=== PATIENT | female | born 1985 | race Caucasian/White ===

== ENCOUNTER 2019-07-10 15:07 | Emergency (ER) | payer OTHER, SELFPAY ==
[2019-07-10 15:09] VITALS: BP 133/91; PULSE 103; RESP 18; TEMP 36.9; O2SAT 99; BMI 29.6
--- NOTE | 2019-07-10 16:09 | CT_ITS ---
STUDY: CT ABDOMEN AND PELVIS WITH CONTRAST REASON FOR EXAM: Female, 33 years old. NAUSEA, YELLOWING OF EYES WORSENING. TESTED FOR HEPATITIS, FAR SHE KNOWS IT CAME BACK NEGATIVE RADIATION DOSAGE (If Supplied By Facility): CTDIvol = ( 15.08 ) mGy, DLP = ( 1045.91 ) mGycm TECHNIQUE: Transaxial images were obtained from the dome of the diaphragm to the symphysis pubis without oral contrast. Oral and amp; IV Gastrografin and amp; 100mL Isovue-300 was administered. Sagittal and coronal images were reconstructed. Individualized dose optimization techniques were used for this CT. COMPARISON: None. FINDINGS: The visualized lung bases are unremarkable. The visualized portions of the heart are within normal limits. The liver is upper normal in size and homogeneous attenuation without mass or bile duct dilatation. There does appear to be very subtle periportal fluid possibly due to nonspecific hepatocellular disease. Contracted thick-walled gallbladder without calcified stones possibly physiologic however ultrasound is recommended for further evaluation.. Normal spleen. Normal pancreas. Normal bilateral adrenal glands. Normal right kidney. Normal left kidney. Normal visualized stomach. Normal small intestine. Normal colon. The appendix is visualized and appears normal. Normal abdominal aorta. Normal inferior vena cava. Normal retroperitoneum. Normal urinary bladder. Mild cystic changes in the ovaries bilaterally with small amount of free fluid in the cul-de-sac likely due to recent ovulation. Normal abdominal wall. Normal osseous structures. CT/Abdomen/Pelvis WITH Contrast IMPRESSION: Contracted thick-walled gallbladder without calcified stones Ultrasound recommended for further assessment. Mild periportal fluid within the liver suggesting nonspecific hepatocellular disease. Electronically Signed: John Gayle MD at 18:26 EDT , Service support ,
--- NOTE | 2019-07-10 16:17 | ED.VISSUMM ---
- ER Visit Summary Date of Service: 07/10/19 Chief Complaint: Jaundice History of Present Illness: The patient is a 33 F who presents with jaundice that is been getting worse over the past several days. Patient states she saw her primary care physician 2 days ago and he did some blood work looking for hepatitis. Patient states her hepatitis panels all came back negative. Patient denies any pain. Patient admits to some nausea. Patient states the yellowness in her eyes and skin is getting worse. Patient denies any fevers or chills. Patient denies any visual changes. Patient denies any chest pain or shortness of breath. Physical Examination: Vital signs are stable. Patient is afebrile. Patient is in no acute distress. Pupils are equal, round, and reactive to light bilaterally. Extraocular muscles are intact. There is scleral icterus noted. Oral mucosa is pink and moist. Neck is supple. Trachea is midline. There is no JVD noted. Heart was regular rate and rhythm. Lungs are clear and equal bilaterally. Abdomen is soft. Bowel sounds are normal. There is no tenderness. There is no rebound or guarding noted. Skin is warm dry. Cranial nerves II through XII are intact. There are no focal motor or sensory deficits noted. Extremities are intact. There is no calf tenderness or edema. Test Results: CBC was normal. Comprehensive metabolic profile showed a total bilirubin of 10.8 and a direct bilirubin of 8.19. Alk phos was slightly elevated at 162. ALT is 2022 and AST is 1626. INR was normal at 1.3. PTT was normal at 32.1. Lipase was normal. CT scan of the abdomen and pelvis was obtained. There is a contracted thick-walled gallbladder without stones. There is mild periportal fluid suggesting nonspecific hepatocellular disease. On reevaluation of the CT scan, the radiologist noted some mild inflammation in the pancreatic head with stranding suggesting focal pancreatitis. Ultrasound of the gallbladder was obtained. There is a mildly thick-walled gallbladder without evidence for stones or acute inflammation. These were interpreted by the radiologist and reviewed by myself. Emergency Department Course and Treatment: Patient was given IV fluids and Zofran here. Patient was feeling better on reevaluation. Patient was instructed to follow-up with her primary care physician in 5 to 7 days. Patient also states that she was initially scheduled for an appoint with Dr. Delvalle. She is going to try and follow-up with him this week. Patient was instructed to drink plenty of fluids. Patient was instructed to return if worse in any way. Patient understood and was agreeable with the plan. All questions were answered. Disposition: Discharge home Impression: 1. Jaundice This note was generated with [employer] dictation software. It may contain incorrect words, spelling, and punctuation that were not noted in review of the chart prior to signing ED Disposition - Plan for ED Patient: Disposition: Home or Assisted Living Diagnosis: Jaundice Instructions: Common Tests for Liver Disease Referrals: Marty Azevedo DO [Primary Care Provider] - 5-7 Days Marcelino Delvalle MD [NON-STAFF] - Keep [facility] appointment
[2019-07-10 16:33] LABS: Absolute Lymphocyte Count 1.15 X10^3/uL (0.83-4.51); Absolute Neutrophil Count 3.2 X10^3/uL (2.0-7.7); Basophil# 0.02 X10^3/uL; Basophil% 0.4 % (0-1); Eosinophil# 0.12 X10^3/uL; Eosinophils% 2.4 % (0-5); Lymphocyte # 1.15 X10^3/ul (4.0); Lymphocyte % 23.1 % (19-41); Mean Corp Hgb Conc 33.3 g/dL (32-36); Mean Corpuscular Hgb 30.4 pg (27.0-32.0); Mean Corpuscular Volume 91.3 fL (81-99); Mean Platelet Vol. 9.6 fl (6.2-12.0); Monocyte# 0.52 X10^3/uL; Monocyte% 10.4 % (0-10); NRBC Flagged by Analyzer 0 % (0-5); Neutrophil # 3.16 X10^3/uL (2.7-7.7); Neutrophil % 63.5 % (47-70); Platelet Count 241 K/mm3 (150-450); RBC Distribution Width CV 15.1 % (11.6-14.6); RBC Distribution Width SD 50.5 fl (35.1-43.9); Red Blood Count 4.27 M/mm3 (4.2-5.4)
[2019-07-10] MEDS: Ondansetron 4 MG/2 ML Vial IV (16:39)
[2019-07-10] MEDS: 0.9% Normal Saline 1,000 ML 1000 ML IV (16:39)
[2019-07-10 16:50] LABS: International Normalized Ratio 1.3; Prothrombin Time (Protime)PT. 15.6 SECONDS (11.7-14.9)
[2019-07-10 16:51] LABS: Partial Thromboplast Time 32.1 Seconds (24.1-36.2)
[2019-07-10 16:53] LABS: AST(SGOT) 1626 U/L (15-37); Alanine Aminotransfer ALT/SGPT 2022 U/L (13-56); Albumin, Serum 3.6 g/dL (3.2-5.0); Alkaline Phosphatase 162 U/L (45-117); Anion Gap 7 (5-15); BUN 6 mg/dL (7-18); BUN/Creat Ratio 7.8 RATIO (10-20); Bilirubin, Direct 8.19 mg/dL (0.00-0.30); Calcium,Total 9.2 mg/dL (8.5-10.1); Chloride 106 mmol/L (98-107); Creatinine, Serum 0.77 mg/dL (0.55-1.02); EST Glomerular Filtration Rate 91 mL/min (>60); Est Glom Filt Rate - Afr Amer 110 mL/min (>60); Estimated Creatinine Clearance 102.87 ml/min; Globulin 3.3 g/dL (2.2-4.2); Glucose 105 mg/dL (74-106); Lipase 35 U/L (73-393); Protein, Total 6.9 g/dL (6.4-8.2); Sodium Level 141 mmol/L (136-145)
[2019-07-10 18:08] VITALS: BP 112/80; PULSE 74; RESP 16; O2SAT 100
--- NOTE | 2019-07-10 19:06 | US_ITS ---
STUDY: ABDOMINAL ULTRASOUND - RIGHT UPPER QUADRANT REASON FOR VISIT: Female, 33 years old ABD PAIN-YELLOWING OF THE SKIN TECHNIQUE: Ultrasound evaluation of the right upper quadrant was performed with real-time and static carl-scale imaging. TECHNICAL QUALITY: Adequate. COMPARISON: None. FINDINGS: Liver: The liver measures 15.1 cm. There is normal echogenicity of the liver. The bile ducts are within normal limits. There is hepatic color flow. The direction of portal flow is hepatopetal. There is no demonstrated mass lesion. Gallbladder: Normal distended gallbladder. The gallbladder wall measures 3 mm. There is a negative sonographic Jacques''s sign. There is no pericholecystic fluid. There are no gallstones. Common Bile Duct (C.B.D.): The common bile duct measures 4 mm. Pancreas: Less than optimal visualization due to bowel gas producing artifact Right Kidney: Normal size of the right kidney. The right kidney measures 10.9 x 4.6 x 4.4 cm. Normal renal cortex. The right cortex measures 1.5 cm. There is no demonstrated renal mass or cyst. There is no right hydronephrosis. US/Gallbladder IMPRESSION: Mildly thick-walled gallbladder without evidence for stones or acute inflammation. Electronically Signed: John Gayle MD at 19:41 EDT , Service support ,
[2019-07-10 20:53] LABS: Internal QC Validated? YES +Cl - CLEAR BKGD; Monotest Negative (Negative)
== END 2019-07-10 20:51 | disposition home or self-care (01) ==
PROVIDERS: Emergency Provider Emergency Medicine; PCP Family Medicine
DX: R17 Unspecified jaundice (principal); R11.0 Nausea
CPT/HCPCS: 74177; 76705; 80048; 80076; 83690; 85025; 85610; 85730; 86308; 96361; 96374; 99283; J7030; Q9967; A4216; J2405

== ENCOUNTER → 2019-07-12 15:54 | Outpatient (CLI) | payer OTHER, SELFPAY ==
[2019-07-10 15:09] VITALS: BMI 29.6
[2019-07-15 16:59] LABS: ANTINUCLEAR ANTIBODIES DIRECT Negative (Negative); Anti-Mitochondrial AB <20.0 Units (0.0-20.0); Anti-Smooth Muscle ABS 17 Units (0-19)
[2019-07-16 17:41] LABS: EBV Acute VCA IgM < 36.0
== END ==
PROVIDERS: PCP Family Medicine; Referring Provider Family Medicine; Visit Provider Family Medicine
DX: K75.9 Inflammatory liver disease, unspecified (principal)
CPT/HCPCS: 36415; 83516; 86038; 86665

== ENCOUNTER → 2019-07-18 15:50 | Outpatient (CLI) | payer OTHER, SELFPAY ==
[2019-07-10 15:09] VITALS: BMI 29.6
[2019-07-18 18:24] LABS: AST(SGOT) 2439 U/L (15-37); Alanine Aminotransfer ALT/SGPT 2867 U/L (13-56); Albumin, Serum 3.5 g/dL (3.2-5.0); Alkaline Phosphatase 170 U/L (45-117); Bilirubin, Direct 12.26 mg/dL (0.00-0.30); GGTP 111 U/L (5-55); Globulin 3.7 g/dL (2.2-4.2); LDH 342 U/L (84-246); Protein, Total 7.2 g/dL (6.4-8.2)
== END ==
PROVIDERS: PCP Family Medicine; Referring Provider Internal Medicine Gastroenterology; Visit Provider Internal Medicine Gastroenterology
DX: R17 Unspecified jaundice (principal)
CPT/HCPCS: 36415; 80076; 82977; 83615

== ENCOUNTER 2019-07-25 16:10 | Outpatient (RCR) | payer OTHER, SELFPAY ==
[2019-07-25 17:55] LABS: International Normalized Ratio 1.2; Prothrombin Time (Protime)PT. 14.9 SECONDS (11.7-14.9)
[2019-07-25 17:56] LABS: Partial Thromboplast Time 33.5 Seconds (24.1-36.2)
[2019-07-25 19:20] LABS: ALB/GLOB Ratio 0.9 RATIO (0.9-2.4); AST(SGOT) 1507 U/L (15-37); Alanine Aminotransfer ALT/SGPT 1561 U/L (13-56); Albumin, Serum 3.2 g/dL (3.2-5.0); Alkaline Phosphatase 138 U/L (45-117); Anion Gap 8 (5-15); BUN 9 mg/dL (7-18); BUN/Creat Ratio 9.7 RATIO (10-20); Calcium,Total 9.1 mg/dL (8.5-10.1); Chloride 103 mmol/L (98-107); Creatinine, Serum 0.93 mg/dL (0.55-1.02); EST Glomerular Filtration Rate 73 mL/min (>60); Est Glom Filt Rate - Afr Amer 88 mL/min (>60); Globulin 3.5 g/dL (2.2-4.2); Glucose 79 mg/dL (74-106); Potassium 3.5 mmol/L (3.5-5.1); Protein, Total 6.7 g/dL (6.4-8.2); Sodium Level 138 mmol/L (136-145)
== END 2019-08-08 18:00 | disposition home or self-care (01) ==
LOC: MTLAB 16:10
PROVIDERS: PCP Family Medicine; Referring Provider Internal Medicine Gastroenterology; Visit Provider Internal Medicine Gastroenterology
DX: R17 Unspecified jaundice (principal)
CPT/HCPCS: 36415; 80053; 85610; 85730

== ENCOUNTER 2019-08-06 16:32 | Outpatient (RCR) | payer OTHER, SELFPAY ==
[2019-07-30 14:46] LABS: Ammonia < 10.0 umol/L (11-32)
[2019-07-30 14:49] LABS: International Normalized Ratio 1.3; Prothrombin Time (Protime)PT. 15.4 SECONDS (11.7-14.9)
[2019-07-30 15:19] LABS: AST(SGOT) 1804 U/L (15-37); Alanine Aminotransfer ALT/SGPT 1503 U/L (13-56); Albumin, Serum 3.1 g/dL (3.2-5.0); Alkaline Phosphatase 134 U/L (45-117); Bilirubin, Direct 13.72 mg/dL (0.00-0.30); Globulin 3.6 g/dL (2.2-4.2); Iron 166 ug/dL (50-170); Protein, Total 6.7 g/dL (6.4-8.2)
[2019-08-06 17:41] LABS: International Normalized Ratio 1.2; Prothrombin Time (Protime)PT. 14.7 SECONDS (11.7-14.9)
[2019-08-06 18:15] LABS: AST(SGOT) 1106 U/L (15-37); Alanine Aminotransfer ALT/SGPT 1107 U/L (13-56); Albumin, Serum 3.3 g/dL (3.2-5.0); Alkaline Phosphatase 141 U/L (45-117); Bilirubin, Direct 8.19 mg/dL (0.00-0.30); Globulin 3.7 g/dL (2.2-4.2); Iron 218 ug/dL (50-170)
[2019-08-08 05:57] LABS: Ceruloplasmin 24.8 mg/dL (19.0-39.0)
== END 2019-08-08 18:00 | disposition home or self-care (01) ==
LOC: MTLAB 16:32
PROVIDERS: PCP Family Medicine; Referring Provider Internal Medicine Gastroenterology; Visit Provider Internal Medicine Gastroenterology
DX: R17 Unspecified jaundice (principal)
CPT/HCPCS: 36415; 80076; 82140; 82390; 83540; 85610

== ENCOUNTER → 2019-08-16 08:15 | Outpatient (CLI) | payer OTHER, SELFPAY ==
[2019-08-16 10:06] LABS: International Normalized Ratio 1.1; Prothrombin Time (Protime)PT. 13.7 SECONDS (11.7-14.9)
[2019-08-16 10:14] LABS: ALB/GLOB Ratio 0.9 RATIO (0.9-2.4); AST(SGOT) 606 U/L (15-37); Alanine Aminotransfer ALT/SGPT 898 U/L (13-56); Albumin, Serum 3.4 g/dL (3.2-5.0); Alkaline Phosphatase 124 U/L (45-117); Anion Gap 7 (5-15); BUN 8 mg/dL (7-18); BUN/Creat Ratio 13.9 RATIO (10-20); Calcium,Total 9.2 mg/dL (8.5-10.1); Chloride 108 mmol/L (98-107); Creatinine, Serum 0.58 mg/dL (0.55-1.02); EST Glomerular Filtration Rate 126 mL/min (>60); Est Glom Filt Rate - Afr Amer 153 mL/min (>60); Globulin 3.8 g/dL (2.2-4.2); Glucose 90 mg/dL (74-106); Potassium 3.9 mmol/L (3.5-5.1); Protein, Total 7.2 g/dL (6.4-8.2); Sodium Level 140 mmol/L (136-145)
[2019-08-20 03:06] LABS: HSV 1 By PCR Negative (Negative)
[2019-08-20 05:54] LABS: CMV Acute Antibody IgM < 30.0 AU/mL (0.0-29.9); CMV Antibody IgG > 10.00 U/mL (0.00-0.59); HSV 2 By PCR Negative (Negative); V-Zoster IgG (Immunity) < 135 index (Immune >165); V-Zoster Virus Acute IgM < 0.91 index (0.00-0.90)
== END ==
PROVIDERS: PCP Family Medicine; Referring Provider Internal Medicine Gastroenterology; Visit Provider Internal Medicine Gastroenterology
DX: Z00.00 Encounter for general adult medical examination without abnormal findings (principal)
CPT/HCPCS: 36415; 80053; 82140; 85610; 86644; 86645; 86787; 87529

== ENCOUNTER 2019-08-20 07:56 | Outpatient (RCR) | payer OTHER, SELFPAY ==
[2019-08-20 10:10] LABS: Prothrombin Time (Protime)PT. 12.8 SECONDS (11.7-14.9)
[2019-08-20 10:37] LABS: AST(SGOT) 395 U/L (15-37); Alanine Aminotransfer ALT/SGPT 709 U/L (13-56); Albumin, Serum 3.4 g/dL (3.2-5.0); Alkaline Phosphatase 141 U/L (45-117); Bilirubin, Direct 2.44 mg/dL (0.00-0.30); Globulin 3.8 g/dL (2.2-4.2); Iron 97 ug/dL (50-170); Protein, Total 7.2 g/dL (6.4-8.2)
== END 2019-08-20 18:00 | disposition home or self-care (01) ==
LOC: MTLAB 07:56
PROVIDERS: PCP Family Medicine; Referring Provider Internal Medicine Gastroenterology; Visit Provider Internal Medicine Gastroenterology
DX: R17 Unspecified jaundice (principal)
CPT/HCPCS: 36415; 80076; 82140; 83540; 85610

== ENCOUNTER 2019-09-17 08:37 | Outpatient (RCR) | payer OTHER, SELFPAY ==
[2019-09-17 10:07] LABS: Prothrombin Time (Protime)PT. 12.9 SECONDS (11.7-14.9)
[2019-09-17 10:31] LABS: AST(SGOT) 70 U/L (15-37); Alanine Aminotransfer ALT/SGPT 99 U/L (13-56); Albumin, Serum 3.7 g/dL (3.2-5.0); Alkaline Phosphatase 76 U/L (45-117); Bilirubin, Direct 0.69 mg/dL (0.00-0.30); Iron 101 ug/dL (50-170); Protein, Total 7.7 g/dL (6.4-8.2)
== END 2019-09-17 18:00 | disposition home or self-care (01) ==
LOC: MTLAB 08:37
PROVIDERS: PCP Family Medicine; Referring Provider Internal Medicine Gastroenterology; Visit Provider Internal Medicine Gastroenterology
DX: R17 Unspecified jaundice (principal)
CPT/HCPCS: 36415; 80076; 82140; 83540; 85610